=== PATIENT | female | born 1960 | race Caucasian/White ===

== ENCOUNTER 2016-12-25 21:14 | Emergency (ER) | payer OTHER ==
[2016-12-25 22:09] VITALS: BP 139/81; PULSE 76; RESP 16; TEMP 98.1; O2SAT 94
--- NOTE | 2016-12-25 22:15 | EDPHY ---
H & P Time Seen by Provider: 12/25/16 22:04 HPI/ROS: CHIEF COMPLAINT: Insect bite History by patient HISTORY OF PRESENT ILLNESS: 48-year-old woman with history of high cholesterol presents complaining of sudden onset sharp pain in her left shoulder area while she was changing her clothes to go to the gym. She says she went to [facility] and was able to do that but with a intermittently getting some stinging sharp pain in her shoulder, not necessarily related to movement, and when she came home she noticed an area of redness and she thought it might be an spider bite. It is not worse when she moves her shoulder around. She noticed that the skin is red compared to the other side. She has had no fever, chills, nausea or vomiting. There is no distal numbness or tingling. She has never had this before. There was no trauma to the area. She tried taking oral Children's Benadryl with minimal relief. REVIEW OF SYSTEMS: As in HPI, and all other systems reviewed and are negative Smoking Status: Never smoked Physical Exam: General Appearance: Alert and no distress. Nontoxic-appearing Eyes: Pupils equal and round no injection. Musculoskeletal: Neck is supple and nontender. Extremities: Left shoulder full range of motion without pain, no bony tenderness, positive 3 x 3 cm area of redness without fluctuance or induration and no drainage, no hyperesthesia, nontender, radial pulse 2 +and equal to the right, distal sensation intact, motor and sensory intact in hand. Skin: No rashes or lesions except as described above. Constitutional: Initial Vital Signs Temperature (C) 36.7 C 12/25/16 21:50 Heart Rate 76 12/25/16 21:50 Respiratory Rate 16 12/25/16 21:50 Blood Pressure 139/81 H 12/25/16 21:50 O2 Sat (%) 94 12/25/16 21:50 O2 Delivery Mode Room Air Allergies/Adverse Reactions: Sulfa (Sulfonamide Antibiotics) Allergy (Verified 06/08/12 15:48) Home Medications: Medication Instructions Recorded Atorvastatin Calcium [Lipitor 20 20 mg PO DAILY 11/19/11 mg (RX)] Levothyroxine [Synthroid 100 mcg 100 mcg PO DAILY06 11/19/11 (RX)] MDM/Departure - [facility] ED Course/Re-evaluation: 48-year-old woman presents with red painful skin lesion on left shoulder a sudden onset which she suspects an spider or insect bite, which is nontender and there is no evidence of infection, joint involvement, neurovascular compromise. Patient was given reassurance we will try conservative treatment with cool compresses, topical Benadryl cream and oral ibuprofen. We discussed return precautions including but not limited to fever, increasing redness and spreading, drainage, increased pain or other changes in lesion or other worsening. Patient understands and is agreeable to this plan. - Depart Disposition: Home, Routine, Self-Care Clinical Impression: Insect bite Qualifiers: Encounter type: initial encounter Qualified Code(s): W57.XXXA - Bitten or stung by nonvenomous insect and other nonvenomous arthropods, initial encounter Condition: Good Instructions: Insect Bite or Sting (ED) Additional Instructions: You were seen by Dr. Aarti Tabares today. Try ibuprofen for inflammation and pain. Put Benadryl cream on the area. Try cold compresses. Return if the redness spreads, you get a fever or otherwise feel ill, if there is any pus draining from the area or the pain worsens or is out of control. Return for any worsening or new concerns. Referrals: ANDRES MAGUIRE [Primary Care Provider] - As per Instructions
== END 2016-12-25 22:23 | disposition home or self-care (01) ==
LOC: CED 21:14
DX: S40.262A Insect bite (nonvenomous) of left shoulder, initial encounter (principal); W57.XXXA Bitten or stung by nonvenomous insect and other nonvenomous arthropods, initial encounter